=== PATIENT | male | born 1995 | race Caucasian/White ===

== ENCOUNTER 2023-01-07 20:24 | Emergency (ER) | payer OTHER ==
[~2023-01-07] VITALS: Ht 172.7 cm; Wt 127.0 kg
[2023-01-07 21:15] LABS: BASOPHILS % (AUTO) 0 % (0-10); EOSINOPHILS # (AUTO) 0.1 10^3/uL (0.0-0.3); EOSINOPHILS % (AUTO) 2 % (0-10); HEMATOCRIT 44 % (40-54); HEMOGLOBIN 15.7 g/dL (13.3-17.7); LYMPHOCYTES # (AUTO) 2.5 10^3/uL (1.0-4.0); LYMPHOCYTES % (AUTO) 37 % (12-44); MEAN CORPUSCULAR HEMOGLOBIN 30 pg (25-34); MEAN CORPUSCULAR HGB CONC 36 g/dL (32-36); MEAN CORPUSCULAR VOLUME 85 fL (80-99); MEAN PLATELET VOLUME 10.1 fL (9.0-12.2); MONOCYTES # (AUTO) 0.4 10^3/uL (0.0-1.0); MONOCYTES % (AUTO) 6 % (0-12); NEUTROPHILS # (AUTO) 3.7 10^3/uL (1.8-7.8); NEUTROPHILS % (AUTO) 56 % (42-75); PLATELET COUNT 230 10^3/uL (130-400); WHITE BLOOD COUNT 6.7 10^3/uL (4.3-11.0)
--- NOTE | 2023-01-07 21:18 | ED Chest Pain ---
General Chief Complaint: Chest Wall Stated Complaint: CHEST PAIN Nursing Triage Note: PT AMB TO FT 3 W C/O CHEST TIGHTNESS X45 MINUTES, PAIN WORSE W MOVEMENT AND DEEP BREATHING. PT A&OX4. Source: patient History of Present Illness Date Seen by Provider: Jan 07, 2023 Time Seen by Provider: 20:57 Initial Comments PT ARRIVES VIA POV FROM WORK AT [employer] C/O CHEST PAIN /TIGHTNESS FOR THE LAST 45 MINUTES--BEGAN WHILE HE WAS SITTING ON HIS BREAK AT WORK PAIN IS IN CENTER OF CHEST, NO RADIATION OF PAIN RATES PAIN 4/10 AT REST, AND 7/10 WITH ANY MOVEMENT OF ANY KIND OR WITH BREATHING NO SHORTNESS OF BREATH NO COUGH, FEVER OR URI SYMPTOMS OR RECENT ILLNESS NO NAUSEA/VOMITING OR ABDOMINAL PAIN NO BACK PAIN NO SWEATS HAS NOT TAKEN ANYTHING FOR SYMPTOMS PT HAS HAD THIS SAME PROBLEM--STATES HE GETS IT EVERY COUPLE OF MONTHS FOR THE LAST YEAR. THIS IS NO DIFFERENT HAS NEVER SOUGHT CARE HAS BEEN AT THIS JOB 3 MONTHS, NO NEW ACTIVITIES, NO STRENUOUS ACTIVITIES PT HAS HAD COVID VACCINE X 5, AND FLU VACCINE PT STATES HIS ONLY MEDICAL PROBLEM IS DEPRESSION, AND ONLY MEDICATION IS ANTI-DEPRESSANT NO RECENT MEDICATION CHANGES OR CHANGE IN DOSE. PT DENIES SMOKING OR VAPING, RARE ALCOHOL USE--COUPLE OF TIMES A YEAR, AND DENIES RECENT ALCOHOL. DENIES DRUG USE PCP: NICOLE IN [place] PT LIVES IN [place], BUT GOES TO [facility] AND WORKS HERE IN [place] Allergies and Home Medications Allergies Coded Allergies: No Known Drug Allergies (Unverified , 01/07/23) Review of Systems Review of Systems Constitutional: no symptoms reported EENTM: No Symptoms Reported Respiratory: See HPI Cardiovascular: See HPI Gastrointestinal: No Symptoms Reported; Denies Abdominal Pain, Denies Nausea, Denies Vomiting Genitourinary: No Symptoms Reported Musculoskeletal: no symptoms reported Skin: no symptoms reported Psychiatric/Neurological: No Symptoms Reported Endocrine: No Symptoms Reported Hematologic/Lymphatic: No Symptoms Reported Past Kphwolq-Semqix-Ejkqrv Hx Patient Social History Tobacco Use?: No Smoking Status: Never a Smoker Use of E-Cig and/or Vaping dev: No Substance use?: No Alcohol Use?: Yes Alcohol Frequency: Rarely Immunizations Up To Date Influenza Vaccine Up-to-Date: Yes; Up-to-Date First/Initial COVID19 Vaccinat: 2020 Second COVID19 Vaccination Asad: 2021 Third COVID19 Vaccination Date: 2021 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 oz. kg; 42.00 BMI Method: General Appearance: No Apparent Distress, WD/WN, Obese, Other (MOVES SLOWLY AND DRAMATICALLY, HOLDING HIS CHEST) Neck: Full Range of Motion, Normal Inspection, Non Tender, Supple Respiratory: Normal Breath Sounds, No Accessory Muscle Use, No Respiratory Distress, Other (MID CHEST TENDER TO PALPATION--DRAMATICALLY REPRODUCES PAIN ) Cardiovascular: Regular Rate, Rhythm, No Edema, No JVD, No Murmur, Normal Peripheral Pulses Gastrointestinal: Soft, Tenderness (EPIGASTRIC TENDERNESS) Extremity: Normal Inspection, No Pedal Edema Neurologic/Psychiatric: Alert, Oriented x3, No Motor/Sensory Deficits, accounting manager II- XII Norm as Tested Skin: Normal Color, Warm/Dry Progress/Results/Core Measures Results/Orders Lab Results Laboratory Tests Test 01/07/23 21:08 01/07/23 21:20 Range/Units White Blood Count 6.7 4.3-11.0 10^3/uL Red Blood Count 5.22 4.30-5.52 10^6/uL Hemoglobin 15.7 13.3-17.7 g/dL Hematocrit 44 40-54 % Mean Corpuscular Volume 85 80-99 fL Mean Corpuscular Hemoglobin 30 25-34 pg Mean Corpuscular Hemoglobin Concent 36 32-36 g/dL Red Cell Distribution Width 12.0 10.0-14.5 % Platelet Count 230 130-400 10^3/uL Mean Platelet Volume 10.1 9.0-12.2 fL Immature Granulocyte % (Auto) 0 % Neutrophils (%) (Auto) 56 42-75 % Lymphocytes (%) (Auto) 37 12-44 % Monocytes (%) (Auto) 6 0-12 % Eosinophils (%) (Auto) 2 0-10 % Basophils (%) (Auto) 0 0-10 % Neutrophils # (Auto) 3.7 1.8-7.8 10^3/uL Lymphocytes # (Auto) 2.5 1.0-4.0 10^3/uL Monocytes # (Auto) 0.4 0.0-1.0 10^3/uL Eosinophils # (Auto) 0.1 0.0-0.3 10^3/uL Basophils # (Auto) 0.0 0.0-0.1 10^3/uL Immature Granulocyte # (Auto) 0.0 0.0-0.1 10^3/uL Sodium Level 139 135-145 MMOL/L Potassium Level 3.5 L 3.6-5.0 MMOL/L Chloride Level 104 98-107 MMOL/L Carbon Dioxide Level 22 21-32 MMOL/L Anion Gap 13 5-14 MMOL/L Blood Urea Nitrogen 13 7-18 MG/DL Creatinine 0.82 0.60-1.30 MG/DL Estimat Glomerular Filtration Rate 125 BUN/Creatinine Ratio 16 Glucose Level 101 70-105 MG/DL Calcium Level 9.8 8.5-10.1 MG/DL Corrected Calcium 8.5-10.1 MG/DL Total Bilirubin 0.5 0.1-1.0 MG/DL Aspartate Amino Transf (AST/SGOT) 94 H 5-34 U/L Alanine Aminotransferase (ALT/SGPT) 180 H 0-55 U/L Alkaline Phosphatase 95 40-136 U/L Troponin I < 0.028 <0.028 NG/ML Total Protein 7.5 6.4-8.2 GM/DL Albumin 4.6 H 3.2-4.5 GM/DL Amylase Level 20 L 25-125 U/L Lipase 14 8-78 U/L Urine Color YELLOW Urine Clarity CLEAR Urine pH 6.0 5-9 Urine Specific [place] >=1.030 1.016-1.022 Urine Protein NEGATIVE NEGATIVE Urine Glucose (UA) NEGATIVE NEGATIVE Urine Ketones NEGATIVE NEGATIVE Urine Nitrite NEGATIVE NEGATIVE Urine Bilirubin NEGATIVE NEGATIVE Urine Urobilinogen 0.2 < = 1.0 MG/DL Urine Leukocyte Esterase NEGATIVE NEGATIVE Urine RBC (Auto) TRACE-I H NEGATIVE Urine RBC RARE /HPF Urine WBC RARE /HPF Urine Squamous Epithelial Cells NONE /HPF Urine Crystals PRESENT H /LPF Urine Amorphous Sediment RARE JOSE URATES H /LPF Urine Bacteria TRACE /HPF Urine Casts NONE /LPF Urine Mucus MODERATE H /LPF Urine Culture Indicated NO Urine Opiates Screen NEGATIVE NEGATIVE Urine Oxycodone Screen NEGATIVE NEGATIVE Urine Methadone Screen NEGATIVE NEGATIVE Urine Propoxyphene Screen NEGATIVE NEGATIVE Urine Barbiturates Screen NEGATIVE NEGATIVE Ur Tricyclic Antidepressants Screen NEGATIVE NEGATIVE Urine Phencyclidine Screen NEGATIVE NEGATIVE Urine Amphetamines Screen NEGATIVE NEGATIVE Urine Methamphetamines Screen NEGATIVE NEGATIVE Urine Benzodiazepines Screen NEGATIVE NEGATIVE Urine Cocaine Screen NEGATIVE NEGATIVE Urine Cannabinoids Screen NEGATIVE NEGATIVE My Orders Orders - ROBERT BARRIOS DO Ekg Tracing (01/07/23 20:56) Monitor-Rhythm Ecg Trace Only (01/07/23 20:56) Ed Iv/Invasive Line Start (01/07/23 21:09) Chest Pa/Lat (2 View) (01/07/23 21:09) Amylase (01/07/23 21:09) Cbc With Automated Diff (01/07/23 21:09) Comprehensive Metabolic Panel (01/07/23 21:09) Drug Screen Stat (Urine) (01/07/23 21:09) Lipase (01/07/23 21:09) Ua Culture If Indicated (01/07/23 21:09) Troponin I [place] (01/07/23 21:09) Ketorolac Injection (Toradol Injection) (01/07/23 21:30) Medications Given in ED Current Medications Medications Dose Ordered Sig/Mary Route Start Time Stop Time Status Last Admin Dose Admin Ketorolac Tromethamine 30 mg ONCE ONCE IVP 01/07/23 21:30 01/07/23 21:31 DC 01/07/23 21:21 30 MG Vital Signs/I&O 01/07/23 21:00 Temp 36.4 Pulse 101 Resp 20 B/P (MAP) 131/91 (104) Pulse Ox 96 O2 Delivery Room Air Blood Pressure Mean: 104 Progress Progress Note : Progress Note GIVEN: -TORADOL Initial ECG Impression Date: Jan 07, 2023 Initial ECG Impression Time: 21:05 Initial ECG Rate: 98 Initial ECG Rhythm: Normal Sinus Initial ECG Intervals: Normal Initial ECG Comparisson: No Previous ECG Available Comment INTERPRETED BY ME Diagnostic Imaging Comments CXR--PER RADIOLOGIST REPORT AT 2137 FINDINGS: Lungs: Low lung volume. No focal consolidation. Stable pulmonary vasculature. Pleura: No pleural effusion or pneumothorax. Heart and Mediastinum: Cardiomediastinal silhouette and great vessels of the thorax are stable. Osseous Structures and Soft Tissues: No acute osseous abnormality. Normal soft tissues. IMPRESSION: No acute cardiopulmonary process. Reviewed: Reviewed by Me Departure Impression Primary Impression: Chest wall pain Additional Impressions: POSSIBLE GERD Elevated liver enzymes Disposition: HOME, SELF-CARE Condition: Improved Departure-Patient Inst. Decision time for Depature: 22:00 Referrals: NO,LOCAL PHYSICIAN (PCP/Family) Primary Care Physician Patient Instructions: Acid Reflux and GERD in Adults (DC), Costochondritis, Liver Function Test Add. Discharge Instructions: HOME, REST BLAND DIET--NO SPICY, GREASY/HIGH FAT OR ACIDIC FOODS OR DRINKS AVOID ALCOHOL FOLLOW UP WITH [facility]EXT [facility] FOR [facility]URTHER CARE--CALL IN THE MORNING TO SCHEDULE AN APPOINTMENT All discharge instructions reviewed with patient and/or family. Voiced understanding. Scripts Pantoprazole Sodium (Protonix) 40 Mg Tablet. 40 MG PO DAILY, #15 TAB Prov: ROBERT BARRIOS DO 01/07/23 ROBERT BARRIOS DO Jan 07, 2023 21:18
--- NOTE | 2023-01-07 21:28 | Diagnostic Imaging Report ---
CHEST PA/LAT (2 VIEW) INDICATION: CP. COMPARISON: None. FINDINGS: Lungs: Low lung volume. No focal consolidation. Stable pulmonary vasculature. Pleura: No pleural effusion or pneumothorax. Heart and Mediastinum: Cardiomediastinal silhouette and great vessels of the thorax are stable. Osseous Structures and Soft Tissues: No acute osseous abnormality. Normal soft tissues. IMPRESSION: No acute cardiopulmonary process. Dictated by: Dictated on workstation # [id number]
[2023-01-07 21:30] LABS: BILIRUBIN,URINE NEGATIVE (NEGATIVE); CLARITY,URINE CLEAR; COLOR,URINE YELLOW; GLUCOSE, URINE (UA) NEGATIVE (NEGATIVE); KETONES,URINE NEGATIVE (NEGATIVE); LEUKOCYTE ESTERASE ,URINE NEGATIVE (NEGATIVE); NITRITE,URINE NEGATIVE (NEGATIVE); PROTEIN,URINE NEGATIVE (NEGATIVE)
[2023-01-07] MEDS ORDERED: KETOROLAC 30 MG/ML VIAL IVP ONE (21:30)
[2023-01-07 21:38] LABS: ALBUMIN 4.6 GM/DL (3.2-4.5); CHLORIDE 104 MMOL/L (98-107)
[2023-01-07 21:39] LABS: AMYLASE 20 U/L (25-125); POTASSIUM 3.5 MMOL/L (3.6-5.0); SODIUM 139 MMOL/L (135-145)
[2023-01-07 21:40] LABS: CALCIUM 9.8 MG/DL (8.5-10.1)
[2023-01-07 21:41] LABS: GLUCOSE 101 MG/DL (70-105); TOTAL PROTEIN 7.5 GM/DL (6.4-8.2)
[2023-01-07 21:42] LABS: CARBON DIOXIDE 22 MMOL/L (21-32)
[2023-01-07 21:43] LABS: BILIRUBIN,TOTAL 0.5 MG/DL (0.1-1.0)
[2023-01-07 21:44] LABS: ALKALINE PHOSPHATASE 95 U/L (40-136)
[2023-01-07 21:45] LABS: CREATININE SERUM 0.82 MG/DL (0.60-1.30); GFR ESTIMATED 125
[2023-01-07 21:46] LABS: BUN/CREATININE RATIO 16
[2023-01-07 21:47] LABS: ALANINE AMINOTRANSFERASE 180 U/L (0-55)
[2023-01-07 21:48] LABS: AMORPHOUS SEDIMENT,UR RARE AMOR URATES /LPF; BACTERIA,URINE TRACE /HPF; RBC,URINE RARE /HPF; WBC,URINE RARE /HPF
[2023-01-07 21:48] LABS: LIPASE 14 U/L (8-78)
[2023-01-07 21:50] LABS: AMPHETAMINE SCREEN, URINE NEGATIVE (NEGATIVE); BARBITURATE SCREEN URINE NEGATIVE (NEGATIVE); BENZODIAZEPINES SCREEN URINE NEGATIVE (NEGATIVE); CANNABINOID SCREEN, URINE NEGATIVE (NEGATIVE); COCAINE SCREEN URINE NEGATIVE (NEGATIVE); METHADONE STAT NEGATIVE (NEGATIVE); OPIATE SCREEN URINE NEGATIVE (NEGATIVE); OXYCODONE STAT NEGATIVE (NEGATIVE); PROPOXYPHENE STAT NEGATIVE (NEGATIVE); TRICYCLIC ANTIDEPRESSANTS SCRE NEGATIVE (NEGATIVE)
[2023-01-07] MEDS ORDERED: PANTOPRAZOLE 40 MG (PROTONIX) VIAL IV ONE (22:00)
[2023-01-07] MEDS ORDERED: PANT40TA2 PO (22:04)
[2023-01-07 22:22] VITALS: BP 124/68
== END 2023-01-07 22:22 | disposition home or self-care (01) ==
LOC: ER 20:27
DX: R07.89 Other chest pain (principal); R74.8 Abnormal levels of other serum enzymes; R10.13 Epigastric pain; F32.A Depression, unspecified; Z79.899 Other long term (current) drug therapy
CPT/HCPCS: 36415; 71046; 80053; 80306; 81000; 82150; 83690; 84484; 85025; 93005